=== PATIENT | male | born 1960 | race Two or more races ===

== ENCOUNTER 2019-02-17 14:14 | Emergency (ER) | payer OTHER ==
[~2019-02-17] VITALS: Ht 170.2 cm; Wt 77.1 kg
--- NOTE | 2019-02-17 14:15 | NUR ---
ED Nurse Note: Patient brought in by ambulance to ED from [facility] site where he works. per EMS, his coworkers witnessed him go blank- and fainted. cowerkers guided him down to the floor, no trauma occured. patient does have oral trauma, right tongue bitten. patient is now alert awake x3, breathing unlabored and even.
[2019-02-17 14:33] VITALS: BP 170/87
--- NOTE | 2019-02-17 14:45 | NUR ---
ED Nurse Note: blood sent to lab
--- NOTE | 2019-02-17 14:49 | NUR ---
ED Nurse Note: patient went to CT
[2019-02-17 14:56] LABS: BASOPHILS % (AUTO) 0.8 % (0.0-2.0); EOSINOPHILS % (AUTO) 0.6 % (0.0-3.0); HEMATOCRIT 50.6 % (42.0-52.0); LYMPHOCYTES % (AUTO) 28.4 % (20.0-45.0); MEAN CORPUSCULAR VOLUME 90 FL (80-99); MONOCYTES % (AUTO) 7.3 % (1.0-10.0); NEUTROPHILS % (AUTO) 62.9 % (45.0-75.0); PLATELET COUNT 234 K/UL (150-450); RED BLOOD COUNT 5.61 M/UL (4.70-6.10); RED CELL DISTRIBUTION WIDTH 12.8 % (11.6-14.8); WHITE BLOOD COUNT 12.3 K/UL (4.8-10.8)
--- NOTE | 2019-02-17 15:00 | NUR ---
ED Nurse Note: patient came back from CT
--- NOTE | 2019-02-17 15:04 | Emergency Room Report ---
History of Present Illness General Chief Complaint: Syncope Source: Patient Present Illness HPI 58-year-old male presents ED for evaluation. Brought in for possible seizure. 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 Witnessed by coworkers. Patient sustained tongue trauma. No incontinence. No clonic tonic activity. Patient appears confused upon arrival. States he feels dizzy. Denies any seizure history. Denies alcohol or drug use. Denies photophobia or blurry vision. Denies neck stiffness. Denies fevers or chills. No other aggravating relieving factors. Denies any other associated symptoms Allergies: Coded Allergies: No Known Allergies (Unverified , 02/17/19) Patient History Past Medical History: none Past Surgical History: none Pertinent Family History: none Social History: Denies: smoking, alcohol use, drug use Immunizations: UTD Reviewed Nursing Documentation: PMH: Agreed; PSxH: Agreed Nursing Documentation-PMH Past Medical History: No Stated History Review of Systems All Other Systems: negative except mentioned in HPI Physical Exam Vital Signs Date Time Temp Pulse Resp B/P (MAP) Pulse Ox O2 Delivery O2 Flow Rate FiO2 02/17/19 14:09 98.1 86 22 136/84 97 Room Air Sp02 EP Interpretation: reviewed, normal General Appearance: GCS 15, non-toxic, other - lethargy, Postictal Head: normocephalic, atraumatic Eyes: bilateral eye normal inspection, bilateral eye PERRL ENT: hearing grossly normal, normal pharynx, no angioedema, normal voice Neck: full range of motion, supple/symm/no masses Respiratory: chest non-tender, lungs clear, normal breath sounds, speaking full sentences Cardiovascular #1: regular rate, rhythm, no edema Cardiovascular #2: 2+ carotid (R), 2+ carotid (L), 2+ radial (R), 2+ radial (L) , 2+ dorsalis pedis (R), 2+ dorsalis pedis (L) Gastrointestinal: normal bowel sounds, non tender, soft, non-distended, no guarding, no rebound Rectal: deferred Genitourinary: normal inspection, no CVA tenderness Musculoskeletal: back normal, gait/station normal, normal range of motion, non- tender Neurologic: other - lethargic Psychiatric: judgement/insight normal, memory normal, other - lethargic Reflexes: 3+ bicep (R), 3+ bicep (L), 3+ tricep (R), 3+ tricep (L), 3+ knee (R) , 3+ knee (L) Skin: normal color, no rash, warm/dry, well hydrated Lymphatic: no adenopathy Medical Decision Making Diagnostic Impression: Primary Impression: New onset seizure Additional Impression: CVA (cerebral vascular accident) Qualified Codes: I63.9 - Cerebral infarction, unspecified ER Course Hospital Course 58 yo M presents with confusion, seizure. Differential diagnosis includes- new onset seizure, intracranial mass, CVA, dehydration Clinical course Patient placed on stretcher. Initial history and physical I ordered labs, IV fluids, EKG, CT brain Labs- Cr 1.4, leukocytosis noted, hemoglobin/hematocrit stable. trop negative EKG - NSR, no acute ischemic changes interpreted by sc CT Brain multiple subacute/old infarcts noted. no mass effect or midline shift. neruocysticosis Given loading dose of Keppra. No focal neurological deficits. Patient is more awake but still confused Because of insurance patient will be transferred to [facility]. I feel this is a highly complex case requiring extensive working including EKG/Rhythm strip, Xray/CT/US, Blood/urine lab work, repeat exams while in ED, and administration of strong opiates/narcotics for pain control, admission to hospital or close patient follow up. Diagnosis - new onset seizure, CVA transferred in serious condition Labs Test 02/17/19 14:30 02/17/19 14:46 White Blood Count 12.3 K/UL (4.8-10.8) Red Blood Count 5.61 M/UL (4.70-6.10) Hemoglobin 17.0 G/DL (14.2-18.0) Hematocrit 50.6 % (42.0-52.0) Mean Corpuscular Volume 90 FL (80-99) Mean Corpuscular Hemoglobin 30.3 PG (27.0-31.0) Mean Corpuscular Hemoglobin Concent 33.6 G/DL (32.0-36.0) Red Cell Distribution Width 12.8 % (11.6-14.8) Platelet Count 234 K/UL (150-450) Mean Platelet Volume 7.7 FL (6.5-10.1) Neutrophils (%) (Auto) 62.9 % (45.0-75.0) Lymphocytes (%) (Auto) 28.4 % (20.0-45.0) Monocytes (%) (Auto) 7.3 % (1.0-10.0) Eosinophils (%) (Auto) 0.6 % (0.0-3.0) Basophils (%) (Auto) 0.8 % (0.0-2.0) Sodium Level 144 MMOL/L (136-145) Potassium Level 3.3 MMOL/L (3.5-5.1) Chloride Level 105 MMOL/L (98-107) Carbon Dioxide Level 22 MMOL/L (21-32) Anion Gap 17 mmol/L (5-15) Blood Urea Nitrogen 17 mg/dL (7-18) Creatinine 1.4 MG/DL (0.55-1.30) Estimat Glomerular Filtration Rate 52.2 mL/min (>60) Glucose Level 140 MG/DL (74-106) Calcium Level 9.2 MG/DL (8.5-10.1) Total Bilirubin 0.3 MG/DL (0.2-1.0) Aspartate Amino Transf (AST/SGOT) 26 U/L (15-37) Alanine Aminotransferase (ALT/SGPT) 42 U/L (12-78) Alkaline Phosphatase 114 U/L (46-116) Ammonia 42 umol/L (11-32) Total Protein 7.7 G/DL (6.4-8.2) Albumin 4.0 G/DL (3.4-5.0) Globulin 3.7 g/dL Albumin/Globulin Ratio 1.1 (1.0-2.7) Salicylates Level 1.4 ug/mL (2.8-20) Acetaminophen Level < 2 MCG/ML (10-30) Serum Alcohol < 3 mg/dL Urine Opiates Screen Negative (NEGATIVE) Urine Barbiturates Screen Negative (NEGATIVE) Phencyclidine (PCP) Screen Negative (NEGATIVE) Urine Amphetamines Screen Negative (NEGATIVE) Urine Benzodiazepines Screen Negative (NEGATIVE) Urine Cocaine Screen Negative (NEGATIVE) Urine Marijuana (THC) Screen Negative (NEGATIVE) EKG Diagnostic Results Rate: normal Rhythm: NSR ST Segments: no acute changes ASA given to the pt in ED: No Rhythm Strip Diag. Results EP Interpretation: yes Rhythm: NSR, no PVC's, no ectopy CT/MRI/US Diagnostic Results CT/MRI/US Diagnostic Results : Imaging Test Ordered: CT head Impression Findings: No acute intracranial hemorrhage or edema, mass effect, nor midline shift. There is a parenchymal calcification in the left temporal lobe. There is an old lacunar infarct in the left external capsule region. Age indeterminate lacunar infarcts are seen in the left caudate head and in the anterior limb of left internal capsule. There is extensive low-attenuation throughout the cerebral and cerebellar deep white matter. Old lacunar infarcts are seen in the right external capsular region. The ventricles and extra-axial CSF spaces are normal in size. There is suggestion of an age-indeterminate lacunar infarct in the anterior limb of the right internal capsule as well. Intact calvarium. Visualized orbits and sinuses are unremarkable. The mastoids are clear. Last Vital Signs Date Time Temp Pulse Resp B/P (MAP) Pulse Ox O2 Delivery O2 Flow Rate FiO2 02/17/19 14:33 98.1 87 22 170/87 95 Room Air Status: improved Disposition: ER [facility] Condition: Serious Walter Valadez MD February 17, 2019 15:04
[2019-02-17 15:07] LABS: ANION GAP 17 mmol/L (5-15); BLOOD UREA NITROGEN 17 mg/dL (7-18); CALCIUM 9.2 MG/DL (8.5-10.1); CARBON DIOXIDE 22 MMOL/L (21-32); CHLORIDE 105 MMOL/L (98-107); CREATININE 1.4 MG/DL (0.55-1.30); POTASSIUM 3.3 MMOL/L (3.5-5.1); SODIUM 144 MMOL/L (136-145)
[2019-02-17 15:08] LABS: AMMONIA 42 umol/L (11-32)
[2019-02-17 15:10] LABS: ALANINE AMINOTRANSFERASE 42 U/L (12-78); ALBUMIN/GLOBULIN RATIO 1.1 (1.0-2.7); ALKALINE PHOSPHATASE 114 U/L (46-116); ASPARTATE AMINO TRANSFERASE 26 U/L (15-37); BILIRUBIN,TOTAL 0.3 MG/DL (0.2-1.0)
[2019-02-17] MEDS ORDERED: levETIRAcetam 1,000mg/NS100ml 100 ML IVPB ONE (15:15)
--- NOTE | 2019-02-17 15:16 | Diagnostic Imaging Report ---
Indications: Altered mental status, syncope, trauma Technique: Spiral acquisitions obtained through the brain. Angled axial and coronal 5 x 5 mm slices were reconstructed. Total dose length product 1358.49 mGycm. CTDI vol(s) 70.38 mGy. Dose reduction achieved using automated exposure control Comparison: None. Findings: No acute intracranial hemorrhage or edema, mass effect, nor midline shift. There is a parenchymal calcification in the left temporal lobe. There is an old lacunar infarct in the left external capsule region. Age indeterminate lacunar infarcts are seen in the left caudate head and in the anterior limb of left internal capsule. There is extensive low-attenuation throughout the cerebral and cerebellar deep white matter. Old lacunar infarcts are seen in the right external capsular region. The ventricles and extra-axial CSF spaces are normal in size. There is suggestion of an age-indeterminate lacunar infarct in the anterior limb of the right internal capsule as well. Intact calvarium. Visualized orbits and sinuses are unremarkable. The mastoids are clear. Impression: Negative for acute intracranial bleed or mass effect Multiple old infarcts bilaterally. Extensive white matter changes bilaterally. Most likely on the basis of chronic ischemic change, particularly in view of the evidence of multiple old infarcts. However, this is unusual for patient's age, and demyelinating diseases as etiology of this finding should also be considered Findings discussed by phone with Dr. Valadez in the emergency room at the time of interpretation The CT scanner at [facility] is accredited by the [employer] and the scans are performed using protocols designed to limit radiation exposure to as low as reasonably achievable to attain images of sufficient resolution adequate for diagnostic evaluation.
[2019-02-17] MEDS ORDERED: NKM (15:48)
[2019-02-17 16:33] VITALS: BP 147/105
--- NOTE | 2019-02-17 17:14 | NUR ---
ED Nurse Note: report given to Feliz at [facility].
--- NOTE | 2019-02-17 18:10 | NUR ---
ED Nurse Note: patient transferred to [facility] via [facility] PATIENT LEFT WITH ALL OF HIS BELONGINGS, REPORT GIVEN TO BONNIE ANDRADE AT [facility]
--- NOTE | 2019-02-18 17:44 | Cardiology Report ---
APPROVED REPORT EKG Measurement Heart [id number] ID [id number] Normal sinus rhythm Normal ECG
== END 2019-02-17 18:30 | disposition short-term general hospital (02) ==
LOC: EDBD 14:14 → EDBEDREQ 15:22 → EMR 15:33
DX: R56.9 Unspecified convulsions (principal); I63.9 Cerebral infarction, unspecified
CPT/HCPCS: 36415; 70450; 80053; 80307; 82140; 82962; 85025; 93005; 96361; 96365; 99284; G0480; J1953; 80329